=== PATIENT | female | born 1925 | race Caucasian/White ===

== ENCOUNTER → 2016-12-17 | Outpatient (CLI) | payer MEDICARE, BC ==
[~2016-12-17] MED LIST: ALLO100T PO; AMLO25TA PO; ATEN50TA2 PO; ATOR40TA PO; CARI350T20 PO; CELE-19 PO; COUM2.5T11 PO; FLEEENE4 PR; FOLI1TAB2 PO; HYDR12.55 PO; LOSA100T PO; MELO7.5T6 PO; MILKSUS PO; MIRA33504 PO; MOBI7.5T10 PO; PERCOCET PO; SENO8.6T10 PO; SYNT50TA PO; TAB-TAB PO; TYLE167L PO; ZOFR20TA PO; [UNRECOGNIZED DRUG - REMARK] PO; vitamin d PO
[2016-12-17 12:33] LABS: MEAN CORPUSCULAR HEMOGLOBIN 33.5 pg (27.0-33.0); MEAN CORPUSCULAR HGB CONC 33.2 g/dl (32.0-36.5); MEAN CORPUSCULAR VOLUME 100.8 fl (80.0-96.0); RED CELL DISTRIBUTION WIDTH 13.1 % (11.5-14.5)
[2016-12-17 13:16] LABS: ALBUMIN 3.7 GM/DL (3.2-5.2); ALBUMIN/GLOBULIN RATIO 1.48 (1.00-1.93); BILIRUBIN,TOTAL 0.4 MG/DL (0.2-1.0); CALCIUM LEVEL 8.3 MG/DL (8.8-10.2); CREATININE FOR GFR 1.28 MG/DL (0.55-1.02); FREE T4 1.11 NG/DL (0.76-1.46); GLOMERULAR FILTRATION RATE 41.8 (>32); POTASSIUM SERUM 3.7 MEQ/L (3.5-5.1); TOTAL PROTEIN 6.2 GM/DL (6.4-8.2)
== END ==
LOC: M LAB 12:03
PROVIDERS: ATTEND Nurse Practitioner Family
DX: E03.9 Hypothyroidism, unspecified (principal); I10 Essential (primary) hypertension; E55.9 Vitamin D deficiency, unspecified; E78.00 Pure hypercholesterolemia, unspecified; M10.9 Gout, unspecified; E74.39 Other disorders of intestinal carbohydrate absorption

== ENCOUNTER → 2017-04-02 | Outpatient (CLI) | payer MEDICARE, BC ==
[2017-04-02 09:49] LABS: MEAN CORPUSCULAR HEMOGLOBIN 34.2 pg (27.0-33.0); MEAN CORPUSCULAR HGB CONC 34.6 g/dl (32.0-36.5); MEAN CORPUSCULAR VOLUME 98.8 fl (80.0-96.0); WHITE BLOOD COUNT 5.4 K/mm3 (4.0-10.0)
[2017-04-02 10:12] LABS: ALBUMIN 3.7 GM/DL (3.2-5.2); ALBUMIN/GLOBULIN RATIO 1.19 (1.00-1.93); BILIRUBIN,TOTAL 0.4 MG/DL (0.2-1.0); CALCIUM LEVEL 8.6 MG/DL (8.8-10.2); CREATININE FOR GFR 1.59 MG/DL (0.55-1.02); GLOMERULAR FILTRATION RATE 32.5 (>32); POTASSIUM SERUM 4.1 MEQ/L (3.5-5.1); TOTAL PROTEIN 6.8 GM/DL (6.4-8.2)
== END ==
LOC: M LAB 09:04
PROVIDERS: ATTEND Internal Medicine Cardiovascular Disease
DX: I10 Essential (primary) hypertension (principal); E11.9 Type 2 diabetes mellitus without complications; E78.00 Pure hypercholesterolemia, unspecified; D64.9 Anemia, unspecified; E55.9 Vitamin D deficiency, unspecified

== ENCOUNTER 2017-05-16 13:47 | Emergency (ER) | payer MEDICARE, BC ==
[~2017-05-16] VITALS: Ht 165.1 cm; Wt 55.5 kg
[~2017-05-16 13:47] MED LIST changes: -ATOR40TA PO; +ATOR40TA75 PO; +CARI350T PO; -CARI350T20 PO; -CELE-19 PO; +CELE1CAP4 PO; -COUM2.5T11 PO; +COUM2.5T17 PO; -FOLI1TAB2 PO; +FOLI1TAB4 PO; -LOSA100T PO; +LOSA100T8 PO; -MELO7.5T6 PO; +MELO7.5T7 PO; +MOBI4TAB PO; -MOBI7.5T10 PO
[2017-05-16] MEDS ORDERED: traMADol 50 MG TAB PO ONE (17:15)
[2017-05-16] MEDS ORDERED: ONDANSETRON 4 MG ORAL DISINTEGRATING TAB (S0181) PO ONE (17:15)
--- NOTE | 2017-05-16 19:50 | REPUSA ---
CLINICAL HISTORY: Trauma. TECHNIQUE: Multiple axial CT images were obtained through the brain without IV contrast material. COMMENTS: There is normal configuration of sella turcica. There are no intra or extra-axial collections. There is no mass effect or midline shift. There is no evidence of hematoma formation. No hydrocephalus is p resent. The ventricles are symmetrical. No abnormal calcifications are present. There is diffuse age-appropriate cerebellar and cerebral atrophy with proportionally dilated ventricl es and cortical sulci. There are bilateral periventricular and subcortical white matter hypolucencies compatible with mild c hronic microvascular disease. Otherwise, no significant focal abnormalities are seen either in the posterior fossa or supratentoria l compartment. IMPRESSION: 1. Age-appropriate cerebellar and cerebral atrophy. 2. Mild chronic microvascular disease. 3. No evidence of acute intracranial pathology. Thank you for your kind referral of this patient.
--- NOTE | 2017-05-16 19:55 | REP ---
Left hip: 05/16/2017. Comparison: 01/10/2016. Clinical history: Trauma, left hip pain. AP and frog-leg views are provided. The patient has a left hip arthroplasty with a femoral stem component well aligned in relationship to the [place] bone with the prosthetic cement and bone interface unremarkable. Femoral head component articulates normally with the [place] acetabulum. Bones are demineralized. I do not see definite acetabular ratio fracture. Pubic rami, symphysis pubis and iliac wing intact. Advanced degenerative disc change and severe levorotatory scoliosis lower lumbar spine seen. SI joints with sclerosis, left greater than right in their iliac margins. Impression: 1. No visible or displaced fracture about the left hemipelvis and hip. Bones severely demineralized. Left hip arthroplasty with normal relationship between the prosthetic component and [place] bone. If you have heightened clinical suspicion based on pain or abnormal clinical examination, further imaging may be required. CT scan might be helpful, although some limitation by the dense metal from the left femoral head and shaft should be expected. Signed by Neel Tillman MD 05/16/2017 10:32 P
[2017-05-16] MEDS ORDERED: ACET30TAB PO (20:04)
[2017-05-16] MEDS ORDERED: ZOFR4TAB3 PO (20:04)
[2017-05-16 20:07] VITALS: BP 133/67
== END 2017-05-16 20:23 | disposition home or self-care (01) ==
LOC: M ED 13:47
DX: S00.03XA Contusion of scalp, initial encounter (principal); S70.02XA Contusion of left hip, initial encounter; W01.0XXA Fall on same level from slipping, tripping and stumbling without subsequent striking against object, initial encounter; Y92.018 Other place in single-family (private) house as the place of occurrence of the external cause; Y99.9 Unspecified external cause status; Y93.9 Activity, unspecified; Z88.0 Allergy status to penicillin; Z88.1 Allergy status to other antibiotic agents; Z79.899 Other long term (current) drug therapy

== ENCOUNTER → 2017-07-02 | Outpatient (CLI) | payer MEDICARE, BC ==
[~2017-07-02] MED LIST changes: +ACET30TAB PO; +ZOFR4TAB3 PO
[2017-07-02 10:26] LABS: ALBUMIN 3.6 GM/DL (3.2-5.2); ALBUMIN/GLOBULIN RATIO 1.33 (1.00-1.93); BILIRUBIN,TOTAL 0.4 MG/DL (0.2-1.0); CALCIUM LEVEL 8.8 MG/DL (8.8-10.2); CREATININE FOR GFR 1.26 MG/DL (0.55-1.02); FREE T4 1.03 NG/DL (0.76-1.46); GLOMERULAR FILTRATION RATE 42.6 (>32); PERCENT SATURATION 43.7 % (13.2-45.0); POTASSIUM SERUM 4.4 MEQ/L (3.5-5.1); TOTAL PROTEIN 6.3 GM/DL (6.4-8.2)
[2017-07-02 10:56] LABS: MEAN CORPUSCULAR HEMOGLOBIN 34.5 pg (27.0-33.0); MEAN CORPUSCULAR VOLUME 98.4 fl (80.0-96.0); RED CELL DISTRIBUTION WIDTH 12.6 % (11.5-14.5); WHITE BLOOD COUNT 4.8 K/mm3 (4.0-10.0)
== END ==
LOC: M LAB 09:06
PROVIDERS: ATTEND Nurse Practitioner Family
DX: D64.9 Anemia, unspecified (principal); E78.00 Pure hypercholesterolemia, unspecified; E03.9 Hypothyroidism, unspecified; E55.9 Vitamin D deficiency, unspecified